=== PATIENT | male | born 1970 | race Caucasian/White ===

== ENCOUNTER 2020-12-07 06:00 | Day surgery (SDC) | payer MEDICARE ==
[~2020-12-07] VITALS: Ht 182.9 cm; Wt 77.3 kg
[~2020-12-07 06:00] MED LIST: AMBIEN10 MG PO; CATAPRES0.1 MG PO; COREG12.5 MG PO; COZAAR50 MG PO; HYDRALAZINE HC100 MG PO; IMDUR30 MG PO; NORCO 5/325 TAB1 TA1 PO; PEPCID AC20 MG PO; PLAVIX75 MG PO; PRAVACHOL40 MG PO; RENVELA800 MG PO
[2020-12-07 06:30] LABS: BASOPHILS 0.3 % (0-2); EOSINOPHILS 0.6 % (0-7); HEMATOCRIT 29.9 % (42.0-54.0); HEMOGLOBIN 9.6 g/dL (13.5-17.5); IMMATURE GRANULOCYTES 0.9 % (0-5); LYMPHOCYTE ABS# 0.69 10x3/uL (1.32-3.57); LYMPHOCYTES 10.6 % (15-50); MCH 30.7 pg (26.0-34.0); MCHC 32.1 g/dL (31.0-37.0); MCV 95.5 fL (80.0-100.0); MEAN PLATELET VOLUME 11.8 fL (7.4-10.4); MONOCYTES 7.9 % (2-11); NEUTROPHIL ABS# 5.16 10x3/uL (1.78-5.38); NEUTROPHILS 79.7 % (40-80); RBC 3.13 10x6/uL (4.20-6.10); RDW 16.8 % (11.5-14.5); WBC 6.5 10x3/uL (4.8-10.8)
[2020-12-07 06:32] LABS: PLATELET COUNT 114 10x3/uL (130-400)
[2020-12-07 06:39] LABS: ANION GAP 12.9 mmol/L (8-16); CALCIUM 9.7 mg/dL (8.5-10.1); CARBON DIOXIDE 25.8 mmol/L (21.0-32.0); POTASSIUM - SERUM 4.7 mmol/L (3.5-5.1)
[2020-12-07 07:11] LABS: INR 1.13 (0.85-1.17); PROTIME 13.4 SECONDS (11.6-15.0)
[2020-12-07] MEDS ORDERED: STERAPRED DS 1010 MG (08:41)
[2020-12-07] MEDS ORDERED: MAGNESIUM OXID250 MG (08:42)
[2020-12-07] MEDS ORDERED: TRESIBA FL100 UNIT/1 (08:43)
[2020-12-07] MEDS ORDERED: HUMULIN R100 UNIT/1 (08:44)
[2020-12-07 08:45] VITALS: BP 180/80; Ht 182.9 cm; Wt 77.3 kg
[2020-12-07] MEDS ORDERED: HYDROCODON-ACE1 EAC7 PO (12:13)
--- NOTE | 2020-12-07 14:30 | NUR ---
1305 MEDICATED FOR PAIN AND EATING WELL. 1310 IV REMOVED AND INSTRUCTIONS GIVEN.
--- NOTE | 2020-12-10 14:43 | OP ---
PATIENT NAME: NICOLE GUERRERO MEDICAL RECORD: [id number] :66 LOCATION:[facility] ADMISSION DATE: SURGEON: JORDAN PEREZ MD DATE OF OPERATION: 12/07/2020 REFERRING PHYSICIAN: Dr. Armas. 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 PREOPERATIVE NOTE: Mr. Guerrero is a 50-year-old white male with a successful kidney transplant. 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 He has pain associated with this and has had problems with recurring cephalic arch stenosis and resultant chronic venous hypertension in the right upper extremity. He was brought to the operating room today with plans to ligate the fistula and repair of the brachial artery. DESCRIPTION OF PROCEDURE: Under general anesthesia, the patient was placed in supine position and the right arm prepped and draped in sterile manner. An incision was made across the antecubital space and then up the medial aspect of the arm in a hockey stick shape. The patient had very little subcutaneous fat and the underlying fistula and what proved to be a radial artery were immediately exposed, dissected from the surrounding structures. I demonstrated that the radial artery apparently has a proximal origin and happened to cross over the anastomosis of the brachial artery to the cephalic vein. This was all carefully dissected and and the brachial artery above and below the anastomosis controlled with Silastic loops. The flow was occluded then and the fistula ligated with 2-0 silk and divided and debrided back to the margin of the arterial anastomosis. The artery was flushed proximally and distally with heparinized saline and a direct suture repair then performed of the brachial artery using the small cuff of vein from the old anastomosis using a running 6-0 Prolene suture. When that was completed and the occluding loops were released, excellent blood flow pulsatile high resistance type of Doppler flow signal was present in the brachial artery and there remained good pulsatile blood flow in the radial artery as well. The patient's wound was irrigated with saline and then irrigated and infiltrated with 0.25% Marcaine without epinephrine. The wound was closed with interrupted inverted 3-0 Vicryl and running intracuticular 4-0 Stratafix and the lateral end of the incision closed additionally with 4 interrupted simple 4-0 Prolene sutures to achieve hemostasis. Hemostasis was a problem on the undersurface of the dermis due to the venous hypertension and it was very easy to burn the skin when trying to get hemostasis with electrocautery. OPERATIVE REPORT [id number] NICOLE GUERRERO The incision was sealed with Dermabond glue and dressed with Maxorb AG, Tegaderm and Cavilon skin prep. I then applied a 4-inch Kerlix roll gauze from wrist to axilla and then wrapped with a 4-inch Coban to maintain some gentle pressure on the area of the surgery and to help keep the fistula itself at least modestly exsanguinated. The patient was awakened and taken to the recovery room. Blood loss during the operation was estimated at about 5 mL, was unreplaced. Sponges, instruments and needles were accounted for. No drain was used and no surgical specimen was submitted for histopathology. TRANSINT:[id number] Voice Confirmation ID: [id number] DOCUMENT ID: [id number] JORDAN PEREZ MD at 1443 CC: CHERYL ARMAS MD [id number] DICTATION DATE: 12/07/20 1242 INSTRUMENT ASSEMBLY SUPERVISOR: 12/07/20 1558 [facility] 12/07/20 [facility] [address] [id number]
== END 2020-12-07 14:00 | disposition home or self-care (01) ==
LOC: D.OPS 06:00
PROVIDERS: ATTEND Surgery
DX: T82.510A Breakdown (mechanical) of surgically created arteriovenous fistula, initial encounter (principal); I12.9 Hypertensive chronic kidney disease with stage 1 through stage 4 chronic kidney disease, or unspecified chronic kidney disease; E11.22 Type 2 diabetes mellitus with diabetic chronic kidney disease; Z94.0 Kidney transplant status; I25.10 Atherosclerotic heart disease of native coronary artery without angina pectoris